=== PATIENT | female | born 1950 | race Caucasian/White ===

== ENCOUNTER 2018-07-14 17:50 | Emergency (ER) | payer MEDICARE, BC ==
[2018-07-14] MEDS ORDERED: METOCLOPRAMIDE HCL 10 MG TABLET PO ONE (21:45)
[2018-07-14] MEDS ORDERED: NORMAL SALINE 1000 ML 1,000 ML IV ONE (21:45)
--- NOTE | 2018-07-14 21:48 | ER Document Report ---
ED Medical Screen (RME) - General Chief Complaint: Nausea/Vomiting/Diarrhea Stated Complaint: VOMITING, DIARRHEA, HEADACHE Time Seen by Provider: 07/14/18 21:45 Notes: 68-year-old female with chief complaints of dental pain. She states 1 week ago she started with vomiting, she has had loose stools, she had trouble eating for the past week, she has only had 2 loose stools a day but she is having worsening nausea and increased pain. Pain is worse in the lower abdomen. Reports feeling feverish and having some chills. Denies bloody stools. TRAVEL OUTSIDE OF THE [place] IN LAST 30 DAYS: No - Related Data Allergies/Adverse Reactions: ondansetron [From Zofran] Allergy (Verified 07/14/18 21:46) Penicillins Allergy (Verified 07/14/18 21:46) Past Medical History Renal/ Medical History: Denies: Hx Peritoneal Dialysis Physical Exam - Vital signs Vitals: Temp Pulse Resp BP Pulse Ox 99.1 F 91 15 141/89 H 96 07/14/18 18:41 07/14/18 18:41 07/14/18 18:41 07/14/18 18:41 07/14/18 18:41 - General General appearance: Appears well In distress: None - Abdominal Tenderness: Tender - Tender generally over the abdomen in both upper and lower abdomen with wincing with palpation Course - Re-evaluation Re-evalutation: Describes viral symptoms, however because of increasing pain, age, resolving diarrhea and persistent worsening pain CT of the abdomen and pelvis will be performed to rule out developing diverticulitis, abscess, or surgical etiology. I have greeted and performed a rapid initial assessment of this patient. A comprehensive ED assessment and evaluation of the patient, analysis of test results and completion of the medical decision making process will be conducted by additional ED providers. - Vital Signs Vital signs: Temp Pulse Resp BP Pulse Ox 99.1 F 91 15 141/89 H 96 07/14/18 18:41 07/14/18 18:41 07/14/18 18:41 07/14/18 18:41 07/14/18 18:41
[2018-07-14 22:16] LABS: ABSOLUTE BASOPHILS # (AUTO) 0.1 10^3/uL (0.0-0.2); ABSOLUTE EOSINOPHILS # (AUTO) 0.2 10^3/uL (0.0-0.6); ABSOLUTE LYMPHOCYTES (AUTO) 3.1 10^3/uL (0.5-4.7); ABSOLUTE NEUT (AUTO) 5.6 10^3/uL (1.7-8.2); EOSINOPHILS % (AUTO) 2.5 % (0-6); HEMATOCRIT 43.6 % (36.0-47.0); HEMOGLOBIN 14.8 g/dL (12.0-15.5); LYMPHOCYTES % (AUTO) 30.6 % (13-45); MEAN CORPUSCULAR HEMOGLOBIN 28.4 pg (27.0-33.4); MEAN CORPUSCULAR VOLUME 84 fl (80-97); PLATELET COUNT 411 10^3/uL (150-450); RED BLOOD COUNT 5.21 10^6/uL (3.72-5.28); RED CELL DISTRIBUTION WIDTH 13.8 % (11.5-14.0); SEGMENTED NEUTROPHILS % (AUTO) 55.9 % (42-78); TOTAL CELLS COUNTED % (AUTO) 100 %; WHITE BLOOD COUNT 10.1 10^3/uL (4.0-10.5)
[2018-07-14 22:46] LABS: ALANINE AMINOTRANSFERASE 32 U/L (9-52); ALBUMIN 4.6 g/dL (3.5-5.0); ALKALINE PHOSPHATASE 58 U/L (38-126); ANION GAP 14 (5-19); ASPARTATE AMINO TRANSFERASE 48 U/L (14-36); BILIRUBIN,DIRECT 0.3 mg/dL (0.0-0.4); BILIRUBIN,TOTAL 0.4 mg/dL (0.2-1.3); BLOOD UREA NITROGEN 13 mg/dL (7-20); CALCIUM 9.8 mg/dL (8.4-10.2); CARBON DIOXIDE 27 mmol/L (22-30); CHLORIDE 101 mmol/L (98-107); GLUCOSE 81 mg/dL (75-110); LIPASE 219.3 U/L (23-300); POTASSIUM 3.5 mmol/L (3.6-5.0); SODIUM 142.4 mmol/L (137-145); TOTAL PROTEIN 7.3 g/dL (6.3-8.2)
--- NOTE | 2018-07-15 04:06 | ER Document Report ---
ED General - General Chief Complaint: Nausea/Vomiting/Diarrhea Stated Complaint: VOMITING, DIARRHEA, HEADACHE Time Seen by Provider: 07/14/18 21:45 Notes: Patient is a 68-year-old female presents with complaint of abdominal pain, vomiting, diarrhea. She says she has had diarrhea now for over a week. She says that she has had recurrent vomiting. No blood in her emesis. No blood in her stool. She has some generalized abdominal pain. She is unsure if she has had any sick contacts except for one family member who vomited once. She has no further concerns at this time. No recent antibiotic use. No recent travel outside the country. TRAVEL OUTSIDE OF THE [place] IN LAST 30 DAYS: No - Related Data Allergies/Adverse Reactions: ondansetron [From Zofran] Allergy (Verified 07/14/18 21:46) Penicillins Allergy (Verified 07/14/18 21:46) Past Medical History - Social History Smoking Status: Never Smoker Frequency of alcohol use: None Drug Abuse: None Family History: Reviewed & Not Pertinent Patient has suicidal ideation: No Patient has homicidal ideation: No Renal/ Medical History: Denies: Hx Peritoneal Dialysis Review of Systems - Review of Systems Notes: My Normal Review Basic REVIEW OF SYSTEMS: CONSTITUTIONAL : Denies fever, chills, or sweats. Denies recent illness. RESPIRATORY: Denies cough, cold, or chest congestion. Denies shortness of breath, difficulty breathing, or wheezing. GASTROINTESTINAL: Generalized abdominal pain. Vomiting and diarrhea GENITOURINARY: Denies difficulty urinating, painful urination, burning, frequency, or blood in urine. MUSCULOSKELETAL: Denies neck or back pain or joint pain or swelling. SKIN: Denies rash or skin lesions. NEUROLOGICAL: Denies altered mental status or loss of consciousness. Denies headache. Denies weakness or paralysis or loss of use of either side. Denies problems with gait or speech. Denies sensory or motor loss. ALL OTHER SYSTEMS REVIEWED AND NEGATIVE. Physical Exam - Vital signs Vitals: Temp Pulse Resp BP Pulse Ox 99.1 F 91 15 141/89 H 96 07/14/18 18:41 07/14/18 18:41 07/14/18 18:41 07/14/18 18:41 07/14/18 18:41 - Notes Notes: General Appearance: Well nourished, alert, cooperative, no acute distress, no obvious discomfort. Well-appearing. Vitals: reviewed, See vital signs table. Head: no swelling or tenderness to the head Eyes: PERRL, EOMI, Conjuctiva clear Mouth: No decreasd moisture Lungs: No wheezing, No rales, No rhonci, No accessory muscle use, good air exchange bilaterally. Heart: Normal rate, Regular rythm, No murmur, no rub Abdomen: Normal BS, soft, No rigidity, mild upper abdominal tenderness palpation is worse in the epigastric region, No guarding, no rebound, no abdominal masses, no organomegaly Extremities: strength 5/5 in all extremities, good pulses in all extremities, no swelling or tenderness in the extremities, no edema. Skin: warm, dry, appropriate color, no rash Neuro: speech clear, oriented x 3, normal affect, responds appropriately to questions. Course - Re-evaluation Re-evalutation: 07/15/18 07:05 Patient looks well on exam. She has had no further vomiting. She tolerated Reglan well. She is received IV fluids. Diarrhea is been ongoing for over a week and therefore placed on 3 days of Cipro. I encouraged her to take the Reglan to keep her nausea under control. Form to return to ER if she has fevers, current abdominal pain, worsening diarrhea, blood in her stool, or if she feels unwell. Patient has very minimal abdominal pain on exam and she has no leukocytosis and she looks well and therefore I do not think CT scan is needed at this time. Dictation of this chart was performed using voice recognition software; therefore, there may be some unintended grammatical errors. - Vital Signs Vital signs: Temp Pulse Resp BP Pulse Ox 99.1 F 91 15 141/89 H 96 07/14/18 18:41 07/14/18 18:41 07/14/18 18:41 07/14/18 18:41 07/14/18 18:41 - Laboratory Result Diagrams: 07/14/18 21:50 07/14/18 21:50 Laboratory results interpreted by me: 07/14/18 21:50 Potassium 3.5 L AST 48 H Discharge - Discharge Clinical Impression: Vomiting and diarrhea Condition: Good Disposition: HOME, SELF-CARE Additional Instructions: Please take the antibiotic as prescribed. Please take the Reglan to help with nausea and vomiting. Return to the ER immediately if you develop fevers, worsening abdominal pain, recurrent vomiting, or blood in her stool. Please take the potassium as prescribed. Follow-up with your doctor this coming week for reevaluation and recheck of your potassium level. Prescriptions: RX: Ciprofloxacin HCl [Cipro 500 mg Tablet] 500 mg PO BID #5 tablet Metoclopramide HCl [Reglan 10 mg Tablet] 1 tab PO ASDIR PRN #25 tablet PRN Reason: RX: Potassium Chloride 20 meq PO DAILY #14 capsule.er
[2018-07-15] MEDS ORDERED: NORMAL SALINE 1000 ML 1,000 ML IV PRN (05:20)
[2018-07-15] MEDS ORDERED: METOCLOPRAMIDE HCL 10 MG TABLET PO ONE (05:22)
[2018-07-15] MEDS ORDERED: POTASSIUM CHLORIDE 10 MEQ CAPSULE.ER PO ONE (06:24)
[2018-07-15] MEDS ORDERED: CIPROFLOXACIN HCL 500 MG TABLET PO ONE (06:25)
[2018-07-15 07:16] LABS: APPEARANCE,URINE CLOUDY; BILIRUBIN,URINE NEGATIVE (NEGATIVE); COLOR,URINE YELLOW; GLUCOSE, URINE NEGATIVE (NEGATIVE); KETONES,URINE 20 mg/dL (NEGATIVE); LEUKOCYTE ESTERASE,URINE LARGE (NEGATIVE); NITRITE,URINE NEGATIVE (NEGATIVE); PROTEIN,URINE NEGATIVE (NEGATIVE); URINE SPECIFIC GRAVITY 1.017; UROBILINOGEN,URINE NEGATIVE mg/dL (<2.0)
[2018-07-15 07:26] VITALS: BP 138/69
== END 2018-07-15 07:26 | disposition home or self-care (01) ==
LOC: ER 17:50
DX: R11.2 Nausea with vomiting, unspecified (principal); R19.7 Diarrhea, unspecified; R10.84 Generalized abdominal pain; Z88.8 Allergy status to other drugs, medicaments and biological substances; Z88.0 Allergy status to penicillin
CPT/HCPCS: 99284; 96360; 36415; 83690; 85025; 80053; 81001; A9270 ×3; J7030